=== PATIENT | male | born 1945 | race Caucasian/White ===

== ENCOUNTER 2019-06-30 15:20 | Emergency (ER) | payer MEDICARE, OTHER ==
[2019-06-30 15:36] VITALS: BP 178/114
[2019-06-30] MEDS ORDERED: GLUCAGEN ONE (16:05)
[2019-06-30] MEDS ORDERED: WATER 20 ML ONE (16:06)
[2019-06-30 16:18] VITALS: BP 178/114
--- NOTE | 2019-06-30 16:26 | ER.PDOC ---
General Chief Complaint: Requesting Medical Care Stated Complaint: FOOT ULCER 2 ND TOE L Time seen by MD: 16:22 Source: patient Exam Limitations: no limitations History of Present Illness Initial Comments H/O DM Timing/Duration: 1 week Severity: mild Location: LLE Identified Cause: yes Exposure: infectious illiness Past Medical History Medical History: diabetes Social History Alcohol Use: sober Reviewed Nursing Reviewed: Vital Signs, Abn. Noted All Other Systems: Reviewed and Negative Physical Exam General Appearance: alert, no distress Skin: other Location: LLE Character: asymmetric With: other (INFECTED CALLOSITY 2 ND TOE, HAMMER TOE) Extremities: other EENT: eyes nml inspection, lips/gums nml, pharynx nml Neck: trachea midline, no swelling Respiratory: no resp. distress, breath sounds nml CVS: reg. rate & rhythm, heart sounds nml Abdomen: non-tender, no organomegaly Rectal: non-tender NEURO/PSYCH: oriented x 3, CN's nml as tested, motor nml, sensation nml, mood/affect nml Results/Orders Results/Orders Orders - TWIN VALLES MD Xr Foot Lt (06/30/19 15:48) Xr Toe Lt (06/30/19 15:48) Glucagon,Human Recombinant (Glucagen) (06/30/19 16:05) Water For Injection,Sterile (Water) (06/30/19 16:06) Vital Signs Date Time Temp Pulse Resp B/P (MAP) Pulse Ox O2 Delivery O2 Flow Rate FiO2 06/30/19 16:18 98.4 98 16 178/114 (135) Room Air 06/30/19 15:36 98.4 98 16 06/30/19 15:36 98.4 98 16 178/114 (135) Room Air Departure Time of Disposition: 16:55 Disposition: 01 HOME, SELF-CARE Impression: Primary Impression: Diabetic foot ulcer Additional Impression: Hammer toe of left foot Condition: Stable Referrals: PCP,UNKNOWN (PCP) PRIMARY CARE PROVIDER Duration or Time Spent with Pa: 20 M Problem Qualifiers TWIN VALLES MD Jun 30, 2019 16:25
--- NOTE | 2019-06-30 16:30 | DIREP ---
PROCEDURE:XRAY FOOT MIN 3 VWS-LT COMPARISON:[facility], CR, XRAY TOE-LT, 06/30/2019, 03:57 PM. INDICATIONS:HAMMER TOE WITH ULCER, ? OSTEOMYELITIS FINDINGS: BONES:Old healed 3rd metatarsal shaft fracture. No acute fractures. No areas of cortical destruction. Posterior calcaneal spur. JOINTS:Normal. SOFT TISSUES:Normal. OTHER:No additional findings. CONCLUSION:No radiographic evidence of osteomyelitis. Dictated by: Griffin Carver M.D. on 06/30/2019 at 04:26 PM
--- NOTE | 2019-06-30 16:33 | DIREP ---
PROCEDURE:XRAY TOE-LT COMPARISON:[facility], CR, XRAY FOOT MIN 3 VWS-LT, 06/30/2019, 03:57 PM. INDICATIONS:ULCER 2 ND TOE, HAMMER TOE TECHNIQUE:AP, lateral, and oblique views of the left 2nd toe are provided. FINDINGS: BONES:No fractures or other acute bony abnormalities. No areas of cortical destruction.. JOINTS:Normal. SOFT TISSUES:Normal. OTHER:No additional findings. CONCLUSION:No evidence of osteomyelitis of the left 2nd toe. Dictated by: Griffin Carver M.D. on 06/30/2019 at 04:31 PM
--- NOTE | 2019-06-30 17:10 | NUR ---
DISCHARGE DEISCHARGE INSTRUCTION GIVEN TO PATIENT WITH RX. PATIENT ASKED WHERE COULD GET RX FILLED. DIRECTIONS TO [facility] GIVEN TO PATIENT. PATIENT AGGITATED STATING DOESN'T HAVE TIME TO GET IT FILLED WILL HAVE TO WAIT TILL GETS TO [place]. EXPLAINED TO PATIENT THAT RX HAD TO BE FILLED IN [place]. PATIENT STATES [facility] WON'T GET RX FILLED DUE TO NOT ENOUGH TIME.
[2019-06-30 17:12] VITALS: BP 155/114
== END 2019-06-30 17:00 | disposition home or self-care (01) ==
LOC: ER 15:20
DX: E11.621 Type 2 diabetes mellitus with foot ulcer (principal); L97.528 Non-pressure chronic ulcer of other part of left foot with other specified severity; M20.42 Other hammer toe(s) (acquired), left foot
CPT/HCPCS: 73630; 73660; 99284; J1610; A4216